=== PATIENT | female | born 1995 | race Caucasian/White ===

== ENCOUNTER 2023-04-17 20:47 | Inpatient (IN) | payer BC ==
[~2023-04-17 20:47] MED LIST: Bupivacaine 0.25% HCL 30 ML VIAL ONE
[2023-04-17] MEDS ORDERED: Butorphanol Tartrate 1 MG/ML VIAL SLOW IVP PRN (21:37)
[2023-04-17] MEDS ORDERED: Lidocaine 1% (PF) 30 ML VIAL SC PRN (21:37)
[2023-04-17] MEDS ORDERED: Ondansetron PF 4 MG/2 ML Vial IVP PRN ×2 (21:37→23:44)
[2023-04-17] MEDS ORDERED: Ibuprofen 800 MG TAB PO PRN (21:37)
[2023-04-17] MEDS ORDERED: hydrALAZINE 20 MG/ML VIAL SLOW IVP PRN (21:37)
[2023-04-17] MEDS ORDERED: fentaNYL 50 mcg/mL 1 mL Vial SLOW IVP PRN (21:37)
[2023-04-17] MEDS ORDERED: HYDROcodone/Acetaminophen 5/325 mg Tablet PO PRN ×2 (21:37)
[2023-04-17] MEDS ORDERED: Misoprostol 200 MCG TAB PR PRN (21:37)
[2023-04-17] MEDS ORDERED: Promethazine HCl 25 MG/ML VIAL IM PRN ×2 (21:37→23:44)
[2023-04-17] MEDS ORDERED: Penicillin G Potassium 5 MILL.UNITS in Sodium Chloride 0.9% 100 ML IVPB SCH (21:45)
[2023-04-17] MEDS ORDERED: NS w/ Oxytocin 30 units 500 ML IV SCH ×2 (21:45)
[2023-04-17] MEDS ORDERED: Lactated Ringer's 1,000 ML IV SCH (21:45)
[2023-04-17 22:23] VITALS: BMI 25.5
[2023-04-17 22:38] LABS: Hemoglobin 12.3 g/dL (12.0-15.5); Mean Corpuscular HGB CONC 32.6 g/dL (32.0-36.0); Mean Corpuscular Hemoglobin 29.3 pg (27.0-33.0); Mean Corpuscular Volume 89.8 fl (81.6-98.3); Mean Platelet Volume 11.5 fl (7.4-10.4); Platelet Count 126 10x3/uL (150-450); RBC Distribution Width 13.3 % (11.5-14.5); White Blood Cell (WBC) Count 14.3 10x3/uL (3.5-10.5)
[2023-04-17] MEDS ORDERED: fentaNYL/Ropivacaine Epidural 100 ML ONE (22:59)
[2023-04-17 23:23] LABS: HBSAg Index 0.17 S/CO (0-0.99); Hep B Surf Ag - L&D Non-Reactive S/CO (NonReactive); Syphilis Antibody Nonreactive (Nonreactive); Syphilis Antibody Index 0.03 S/CO (<1.00 Non-Reactive)
[2023-04-17] MEDS ORDERED: Lactated Ringer's 500 ML IV PRN (23:44)
[2023-04-17] MEDS ORDERED: Naloxone HCl 0.4 mg/ml Vial IVP PRN ×2 (23:44)
[2023-04-17] MEDS ORDERED: diphenhydrAMINE 50 MG/ML VIAL IVP PRN (23:44)
[2023-04-17] MEDS ORDERED: Acetaminophen 325 MG TAB PO PRN (23:44)
[2023-04-17] MEDS ORDERED: ePHEDrine Sulfate 50 MG/10 ML VIAL SLOW IVP PRN (23:44)
[2023-04-17] MEDS ORDERED: Moisturizing Cream (Eucerin) 113 GM JAR TOP PRN (23:44)
[2023-04-17] MEDS ORDERED: Communication Order-Pharmacy FS SCH (23:45)
[2023-04-17] MEDS ORDERED: fentaNYL 2 mcg/Ropivacaine 0.2% Epidural 100 ML CADD EPIDURAL SCH (23:45)
[2023-04-18] MEDS ORDERED: fentaNYL 50 mcg/mL 1 mL Vial ONE (00:36)
[2023-04-18] MEDS: Penicillin G 2.5 MILL.units 2.5 MILL.UNITS in Premix Bag 1 BAG IVPB SCH ×2 (02:30→07:18)
[2023-04-18] MEDS ORDERED: NS w/ Oxytocin 30 units 500 ML IV SCH (08:31)
[2023-04-18] MEDS ORDERED: Lanolin Ointment 7 GM TUBE TOP PRN (08:31)
[2023-04-18] MEDS ORDERED: HYDROcodone/Acetaminophen 5/325 mg Tablet PO PRN ×2 (08:31)
[2023-04-18] MEDS ORDERED: Milk Of Magnesia 30 ML UDCUP PO PRN (08:31)
[2023-04-18] MEDS ORDERED: Boostrix 0.5 ML (Tdap) VIAL (>/=7 yrs of age) IM ONE (08:31)
[2023-04-18] MEDS ORDERED: Benzocaine-Menthol 82.5 ML CAN TOP PRN (08:31)
[2023-04-18] MEDS ORDERED: diphenhydrAMINE 25 MG CAP PO PRN (08:31)
[2023-04-18] MEDS ORDERED: Bisacodyl 10 MG SUPP PR PRN (08:31)
[2023-04-18] MEDS ORDERED: Misoprostol 200 MCG TAB VAG PRN (08:31)
[2023-04-18] MEDS ORDERED: hydrALAZINE 20 MG/ML VIAL SLOW IVP PRN (08:31)
[2023-04-18] MEDS: Prenatal Vitamin 1 TAB PO SCH (09:13)
[2023-04-18] MEDS: Docusate 100 MG CAP PO SCH (09:14)
[2023-04-18] MEDS: Ibuprofen 800 MG TAB PO SCH ×2 (14:07→21:42)
[2023-04-18] MEDS: Ferrous Sulfate 325 MG TAB PO SCH (17:47)
[2023-04-19] MEDS: Docusate 100 MG CAP PO SCH ×2 (05:25→19:57)
[2023-04-19] MEDS: Ibuprofen 800 MG TAB PO SCH ×2 (05:26→14:00)
[2023-04-19 17:23] VITALS: BP 111/65; TEMP 98.3
[2023-04-19] MEDS: Prenatal Vitamin 1 TAB PO SCH (19:57)
[2023-04-19] MEDS: Ferrous Sulfate 325 MG TAB PO SCH (19:57)
== END 2023-04-19 21:45 | disposition home or self-care (01) | DRG 806 ==
LOC: CSHLD/OP 20:47 → CSHLD 22:22 → CSHPED 04-18 08:04
PROVIDERS: ADMIT Obstetrics & Gynecology; ATTEND Obstetrics & Gynecology
PROC: 10E0XZZ Delivery of Products of Conception, External Approach (ICD-10-PCS; principal; 2023-04-17)
DX: O60.14X0 Preterm labor third trimester with preterm delivery third trimester, not applicable or unspecified (principal); O98.52 Other viral diseases complicating childbirth; Z37.0 Single live birth; Z3A.36 36 weeks gestation of pregnancy; Z90.49 Acquired absence of other specified parts of digestive tract; B00.9 Herpesviral infection, unspecified
CPT/HCPCS: 36415; 51702; 85027; 86780; 86850; 86900; 86901; 87340; 99285; J2405; J2540; J2590; J3490; S0020